=== PATIENT | male | born 1995 ===

== ENCOUNTER 2020-06-28 06:38 | Day surgery (SDC) | payer BC, OTHER ==
[~2020-06-28 06:38] MED LIST: Lactated Ringers 1,000 ML IV SCH; Sodium Chloride 0.9% 10 ML SDV IV PRN; Sodium Chloride 0.9% 10 ML Syringe FLUSH PRN; Sodium Chloride 0.9% 2.5 ML Syringe FLUSH PRN; ceFAZolin 1 GM in Premix Bag 1 BAG IV ONE
--- NOTE | 2020-06-28 07:13 | PCM.PREANE ---
Preanesthetic Assessment - Anesthesia/Transfusion/Family Hx Anesthesia History: Prior Anesthesia Without Reaction Family History of Anesthesia Reaction: No Transfusion History: No Prior Transfusion(s) - Review of Systems General: No Symptoms Pulmonary: No Symptoms Cardiovascular: No Symptoms Gastrointestinal: No Symptoms Neurological: No Symptoms Other: Reports: None - Physical Assessment Height: 6 ft 5 in Weight: 82.1 kg ASA Class: 1 Mental Status: Alert & Oriented x3 Airway Class: Mallampati = 1 Dentition: Reports: Normal Dentition ROM/Head Extension: Full Lungs: Clear to Auscultation, Normal Respiratory Effort Cardiovascular: Regular Rate, Regular Rhythm - Allergies Allergies/Adverse Reactions: Allergies Allergy/AdvReac Type Severity Reaction Status Date / Time No Known Allergies Allergy Verified 06/25/20 10:54 - Blood Blood Available: No - Anesthesia Plan Pre-Op Medication Ordered: None - Acknowledgements Anesthesia Type Planned: General Anesthesia Alternatives and Risks of Anesthesia Discussed w Pt/Guardian: Yes Pt/Guardian Understands and Agrees with Anesthesia Plan: Yes Additional Comments: PLAN: ga/lma PreAnesthesia Questionnaire Musculoskeletal History: Reports: Fracture Other Musculoskeletal History: hx of fx left clavicle - Past Surgical History Head Surgeries/Procedures: Reports: None HEENT Surgical History: Reports: Oral Surgery Other HEENT Surgeries/Procedures: wisdom teeth removed Musculoskeletal Surgical History: Reports: ORIF Other Musculoskeletal Surgeries/Procedures:: ORIF left clavicle (has hardware), hx of tendon repair right ring finger - SUBSTANCE USE Smoking Status *Q: Never Smoker Recreational Drug Use History: No - HOME MEDS Home Medications: Home Meds . [No Known Home Meds] 06/05/20 [History] - CURRENT (IN HOUSE) MEDS Current Meds: Current Medications Lactated Ringer's (Ringers, Lactated) 1,000 mls @ 125 mls/hr IV ASDIRECTED RONAL Sodium Chloride (Saline Flush) 2.5 ml FLUSH ASDIRECTED PRN PRN Reason: Keep Vein Open Sodium Chloride (Normal Saline) 10 ml IV ASDIRECTED PRN PRN Reason: IV Use Sodium Chloride (Saline Flush) 10 ml FLUSH ASDIRECTED PRN PRN Reason: Keep Vein Open Discontinued Medications Cefazolin Sodium/Dextrose 1 gm (/ Premix) 50 mls @ 100 mls/hr IV ONETIME ONE Stop: 06/25/20 11:11
[2020-06-28] MEDS ORDERED: Bupivacaine 0.5% 10 ML SDV ONE (07:16)
[2020-06-28] MEDS ORDERED: Bupivacaine 0.25% 10 ML SDV ONE (07:16)
[2020-06-28] MEDS ORDERED: Bupivacaine 0.5% 30 ML SDV ONE (07:18)
[2020-06-28] MEDS ORDERED: Glycopyrrolate 0.2 MG/ML SDV ONE (07:20)
[2020-06-28] MEDS ORDERED: fentaNYL 250 MCG/5 ML SDV ONE (07:20)
[2020-06-28] MEDS ORDERED: Lidocaine 2% 5 ML SDV ONE (07:20)
[2020-06-28] MEDS ORDERED: Midazolam 1 MG/ML 2 ML SDV ONE (07:20)
[2020-06-28] MEDS ORDERED: Ondansetron 4 MG/2 ML SDV ONE (07:20)
[2020-06-28] MEDS ORDERED: Propofol 200 MG/20 ML SDV ONE (07:20)
[2020-06-28] MEDS ORDERED: Rocuronium Bromide 50 MG/5 ML Syringe ONE (07:20)
[2020-06-28] MEDS ORDERED: ceFAZolin 1 GM Vial ONE ×2 (08:38→10:28)
[2020-06-28] MEDS ORDERED: Sodium Chloride 0.9% 20 ML ONE ×2 (08:38→10:28)
[2020-06-28] MEDS ORDERED: Atropine 0.1 MG/ML 10 ML Syringe IVPUSH PRN ×2 (09:17)
[2020-06-28] MEDS ORDERED: EPINEPHrine 1:10,000 1 MG/10 ML Syringe IVPUSH PRN (09:17)
[2020-06-28] MEDS ORDERED: Naloxone 0.4 MG/ML Syringe IVPUSH PRN (09:17)
[2020-06-28] MEDS ORDERED: Albuterol 0.083% 2.5 MG/3 ML Neb Soln NEB PRN (09:17)
[2020-06-28] MEDS ORDERED: 50% Dextrose in Water 50 ML Syringe IVPUSH PRN (09:17)
[2020-06-28] MEDS ORDERED: Acetaminophen 1,000 MG in Premix Bag 1 BAG IV ONE (10:07)
[2020-06-28] MEDS ORDERED: Ketorolac 30 MG/ML SDV IVPUSH ONE (10:07)
[2020-06-28] MEDS: fentaNYL 100 MCG/2 ML SDV IVPUSH PRN ×2 (10:24→10:32)
--- NOTE | 2020-06-28 10:41 | PCM.POSTAN ---
POST ANESTHESIA ASSESSMENT - MENTAL STATUS Mental Status: Alert, Oriented - VITAL SIGNS Vital Signs: Last Vital Signs Temp 36.4 C 06/28/20 09:45 Pulse 77 06/28/20 10:36 Resp 12 06/28/20 10:36 BP 118/69 06/28/20 10:36 Pulse Ox 98 06/28/20 10:36 - RESPIRATORY Respiratory Status: Respiratory Rate WNL, Airway Patent, O2 Saturation Stable - CARDIOVASCULAR CV Status: Pulse Rate WNL, Blood Pressure Stable - GASTROINTESTINAL GI Status: No Symptoms - PAIN Pain Score: 1 - POST OP HYDRATION Hydration Status: Adequate & Stable
[2020-06-28] MEDS ORDERED: Acetaminophen/oxyCODONE 325-5 MG Tab PO PRN (11:09)
[2020-06-28] MEDS ORDERED: oxyCODONE 5 MG Tab PO PRN (11:10)
--- NOTE | 2020-06-28 11:15 | PCM.OPNOTE ---
- General Post-Op/Procedure Note Date of Surgery/Procedure: 06/28/20 Operative Procedure(s): Repair right inguinal hernia and hydrocele Findings: Right inguinal hernia with patent tunica vaginalis and associated right hydrocele Pre Op Diagnosis: right inguinal hernia and hydrocele Post-Op Diagnosis: same Anesthesia Technique: MAC Primary Surgeon: Mariposa Aguilar Condition: Good Free Text/Narrative:: Intake & Output 06/27/20 06/28/20 06/28/20 22:59 06:59 14:59 Intake Total 1600 Balance 1600
--- NOTE | 2020-06-28 11:49 | PCM48HPAN ---
Post Anesthesia Note - EVALUATION WITHIN 48HRS OF ANESTHETIC Vital Signs in Normal Range: Yes Patient Participated in Evaluation: Yes Respiratory Function Stable: Yes Airway Patent: Yes Cardiovascular Function Stable: Yes Hydration Status Stable: Yes Pain Control Satisfactory: Yes Nausea and Vomiting Control Satisfactory: Yes Mental Status Recovered: Yes Vital Signs: Last Vital Signs Temp 36.5 C 06/28/20 10:42 Pulse 72 06/28/20 10:42 Resp 16 06/28/20 10:42 BP 138/84 06/28/20 10:42 Pulse Ox 100 06/28/20 10:42 - COMMENTS/OBSERVATIONS Free Text/Narrative:: Patient getting dressed and states he is ready to go home. Denies complaints and states pain is under control.
[2020-06-28 12:46] VITALS: BP 124/78; PULSE 52
--- NOTE | 2020-06-28 14:35 | OR ---
SURGEON: MARIPOSA AGUILAR MD DATE OF PROCEDURE: 06/28/2020 PREOPERATIVE DIAGNOSES: Right inguinal hernia and hydrocele. POSTOPERATIVE DIAGNOSES: Right inguinal hernia and hydrocele. PROCEDURE PERFORMED: Right inguinal hernia and hydrocele repair. PRIMARY SURGEON: Mariposa Aguilar MD SECONDARY SURGEON: Caryl Olguin MD FLUIDS: 1300 mL of crystalloid. ESTIMATED BLOOD LOSS: 5 mL. FINDINGS: Right-sided hydrocele associated with small inguinal hernia. COMPLICATIONS: None. INDICATIONS: The patient is a 24-year-old male who presents with right testicular swelling and a small right inguinal hernia. Preoperative imaging showed a right hydrocele. The patient was seen by myself as well as our urologist, Dr. Olguin. The decision was made to perform an inguinal hernia repair with repair of the right hydrocele. The patient spoke with Dr. Olguin and myself. We both explained the procedure, expected perioperative course, and risks. The patient verbalized understanding and wishes to proceed. PROCEDURE IN DETAIL: The patient was brought into the OR and placed on the OR table in supine position. A time-out was completed verifying the patient's name, age, date of , allergies, and procedure to be performed. General endotracheal anesthesia was induced. The patient's lower abdomen and groin were prepped and draped in usual standard fashion. I anesthetized an area one fingerbreadth above the right inguinal ligament with 0.5% Marcaine plain. A 15 blade was used to make an incision obliquely one fingerbreadth above the right inguinal ligament. Cautery was used to dissect down through the subcutaneous fat layers. Dissection was carried down to the external oblique. Once the external oblique was identified, it was incised along the length of its fibers with a 15 blade scalpel. Metzenbaum scissors were used to extend the incision in both directions, opening up the external oblique down to the external ring. The external oblique was grasped on either side. The cord and cord structures were then cleared away from this. The cord structures were freed up circumferentially along the pubic tubercle and encircled with a Dolores drain. The hernia sac was identified on the anterior medial portion of the cord structures. Using gentle blunt dissection, this was from the cord structures. We then opened up the hernia sac. This communicated with the right hydrocele. We then the sac from its attachments to the cord structures and transected the hernia sac sharply. The distal cut edge of the sac was then cauterized to prevent bleeding. This was left open. The proximal edge was grasped with hemostats and cleared away down to the level of the internal ring. A finger was passed through into the peritoneal space up through the proximal aspect of the sac. The decision was then made to repair this defect with mesh. The proximal hernia sac was then sutured closed using a 1-0 Vicryl stick tie suture. The hernia sac was transected just and sent to pathology as hernia sac. The tied off end retracted back into the internal ring. A small piece of mesh was then brought into the field. It was trimmed to fit. The mesh was then sutured to the pubic tubercle medially, along the ilioinguinal ligament inferiorly, and along the conjoint tendon superiorly using interrupted 0 Ethibond sutures. Along the internal ring, a slit had been made in the mesh. Care was taken to close the internal ring, but to leave enough space for the cord structures to easily pass through the mesh without strangulation. The opening was just large enough to accept the tip of my finger. Once all the sutures were in place, a Valsalva maneuver was performed. The mesh appeared to be intact with no prolapse of the sac through the mesh. The wound was then irrigated with normal saline. The area was hemostatic. I then closed the external oblique over the roof of the canal with a running 0 Vicryl suture, taking care not to strangulate the cord and to recreate the external ring. The external oblique was then injected with 0.5% Marcaine plain for further anesthetic. The Chuck fascia was closed with a running 3-0 Vicryl suture. The subcutaneous fat under the skin was closed with interrupted 3-0 Vicryl sutures. The skin was closed with a running 4-0 Monocryl stitch. Steri-Strips and sterile Tegaderm were applied. The patient tolerated the procedure well, was extubated and taken to PACU in stable condition. All counts were complete and correct at the end of the case. JEAN / ROSI /[id number] FRANCY
== END 2020-06-28 11:50 | disposition home or self-care (01) ==
LOC: MW.SDS 06:38
PROVIDERS: ATTEND Surgery
DX: K40.90 Unilateral inguinal hernia, without obstruction or gangrene, not specified as recurrent (principal); N43.3 Hydrocele, unspecified
CPT/HCPCS: 49505; 55060; A9270; J0131; J0690; J1885; J2001; J2250; J2405; J2704; J3010; J3490; J7120